=== PATIENT | female | born 1990 | race Hispanic/Latino ===

== ENCOUNTER 2018-03-09 09:10 | Emergency (ER) | payer OTHER ==
[2018-03-09 09:19] VITALS: BMI 29.9
[2018-03-09] MEDS ORDERED: Sodium Chloride 0.9% 1,000 ML IV SCH (10:15)
--- NOTE | 2018-03-09 10:28 | ED PDOC ---
HPI: Abdomen Time Seen by Provider: 03/09/18 10:04 Chief Complaint (Nursing): Abdominal Pain Chief Complaint (Provider): Abdominal Pain History Per: Patient History/Exam Limitations: no limitations Onset/Duration Of Symptoms: Hrs Outside of [place] travel?: No Current Symptoms Are (Timing): Still Present Location Of Pain/Discomfort: RLQ, LLQ Quality Of Discomfort: Cramping Associated Symptoms: Diarrhea Additional History Per: Patient Additional Complaint(s): 28 y/o female presents to the ED with less than one day onset of lower abdominal cramps with loose bowel movements consistent with history of IBS. Patient however, is concerned of the stool color changes and describes in the last three episodes consists of dark stools. Additionally, patient reports of feeling dizzy, nausea, and unchanged appetite. Patient denies vomiting. Patient denies fever/chills/sweats Patient denies chest pain/palpitations/shortness of breath Patient denies urinary changes/dysuria Patient denies new medications Patient denies fall/trauma/travel. Patient had questionable sick contact with significant other last week. Patient denies loss of consciousness. Patient is here for further evaluation and presents with no other complaint. 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 Patient has had GI/colonoscopy done four years ago at a [place] facility. Past Medical History Reviewed: Historical Data, Nursing Documentation, Vital Signs Vital Signs: Last Vital Signs Temp 98.2 F 03/09/18 09:18 Pulse 85 03/09/18 09:18 Resp BP 146/85 03/09/18 09:39 Pulse Ox 98 03/09/18 12:48 - Medical History PMH: No Chronic Diseases - Surgical History Surgical History: Tonsillectomy (7yrs ago) - Family History Family History: States: Unknown Family Hx - Social History Alcohol: None - Immunization History Hx Tetanus Toxoid Vaccination: No Hx Influenza Vaccination: No Hx Pneumococcal Vaccination: No - Home Medications Home Medications: Ambulatory Orders Medication Instructions Recorded Ondansetron ODT [Zofran ODT] 4 mg PO TID #10 odt 03/09/18 - Allergies Allergies/Adverse Reactions: Allergies Allergy/AdvReac Type Severity Reaction Status Date / Time No Known Allergies Allergy Verified 03/09/18 09:49 Review of Systems ROS Statement: Except As Marked, All Systems Reviewed And Found Negative Constitutional: Negative for: Fever, Chills, Sweats Cardiovascular: Negative for: Chest Pain, Palpitations Respiratory: Negative for: Shortness of Breath Gastrointestinal: Positive for: Nausea, Abdominal Pain (lower). Negative for: Vomiting, Diarrhea Genitourinary Female: Negative for: Dysuria, Frequency, Hematuria Skin: Negative for: Rash Neurological: Positive for: Dizziness. Negative for: Weakness, Confusion, Altered Mental Status Physical Exam - Reviewed Nursing Documentation Reviewed: Yes Vital Signs Reviewed: Yes (elevated BP) - Physical Exam Appears: Positive for: No Acute Distress, Uncomfortable (alert/awake, GCS = 15, oriented x 3, uncomfortable, NAD, resting in bed) Head Exam: Positive for: ATRAUMATIC, NORMAL INSPECTION, NORMOCEPHALIC Skin: Positive for: Normal Color (cap refill < 1sec, no ulcerations, no petechiae, no gross pallor), Warm, Dry Eye Exam: Positive for: EOMI, Normal appearance, PERRL ENT: Positive for: Normal ENT Inspection Neck: Positive for: Normal, Painless ROM, Supple. Negative for: Decreased ROM, Pain On Movement Of Neck Cardiovascular/Chest: Positive for: Regular Rate, Rhythm, Chest Non Tender. Negative for: Murmur Respiratory: Positive for: Normal Breath Sounds. Negative for: Respiratory Distress Gastrointestinal/Abdominal: Positive for: Normal Exam, Bowel Sounds, Soft, Tenderness (+ diffuse lower abd tenderness; no rebound/guarding/rigidity, no masses, no linn's sign, no mcburney's point tenderness). Negative for: Guarding, Rebound, Asicites Back: Positive for: Normal Inspection. Negative for: L CVA Tenderness, R CVA Tenderness, Vertebral Tenderness Rectal: Positive for: Normal Exam, Rectal Tone Is: (normal), Stool Is Heme: ( NEGATIVE), Hemorrhoids (very small external/NON-thrombosed hemorrhoid, NON- tender, NO gross bleeding, no gross discharge noted). Negative for: Black Stool , Blood Streaked Stool Extremity: Positive for: Normal ROM. 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 Negative for : Motor/Sensory Deficits - Laboratory Results Result Diagrams: 03/09/18 10:37 03/09/18 10:37 - ECG O2 Sat by Pulse Oximetry: 98 (RA) Pulse Ox Interpretation: Normal - Radiology X-Ray: Read By Radiologist - Progress ED Course And Treament: Time: 1014 Impression: lower abd cramping, dark stools/loose stools; worse symptoms then her usual IBS i have consider all the differential diagnosis regarding pt's chief medical complaints/clinical findings, including but are not limited to: r/o infectious, ? acute IBS exacerbation A/P: abd pain, dark stools -- CT Abd/Pelvis IV Contrast -- CMP -- Lipase -- CBC with differentials -- Sodium Chloride IV 150 mls/hr -- Zofran Inj -- IV Insertion -- POC Urine -- Urinalysis Time: 1240 CT ABD/PELVIS RESULTS FINDINGS: LOWER THORAX: Unremarkable. LIVER: Liver is enlarged measuring over 22 cm in CC dimension. Mild diffuse fatty hepatic infiltration. No obvious hepatic mass collection or calcification. Portal and splenic veins are opacified. GALLBLADDER AND BILE DUCTS: Physiologically distended. No evidence of intraluminal gallbladder calculi PANCREAS: Unremarkable. No gross lesion or ductal dilatation. SPLEEN: Unremarkable. ADRENALS: Unremarkable. No mass. KIDNEYS AND URETERS: Unremarkable. No hydronephrosis. No solid mass. VASCULATURE: Unremarkable. No aortic aneurysm. BOWEL: There is minimal wall thickening of the a short segment of the distal descending colon ; findings suggest mild colitis however clinical correlation recommended. APPENDIX: Normal appendix -best seen on coronal sequence image number [id number]. PERITONEUM: Unremarkable. No free fluid. No free air. LYMPH NODES: Unremarkable. No enlarged lymph nodes. BLADDER: Unremarkable. REPRODUCTIVE: Unremarkable. BONES: No acute fracture. OTHER FINDINGS: None. IMPRESSION: Hepatomegaly. Mild fatty hepatic infiltration Findings suggest mild localized colitis involving short segment distal descending colon. No evidence of acute appendicitis. Scribe Attestation: Documented by Darrel Garcia acting as a scribe for Dr. Rogerio Oshea MD. Provider Scribe Attestation: All medical record entries made by the Scribe were at my direction and personally dictated by me. I have reviewed the chart and agree that the record accurately reflects my personal performance of the history, physical exam, medical decision making, and the department course for this patient. I have also personally directed, reviewed, and agree with the discharge instructions and disposition. pt is doing well pt is comfortable 1:15pm - pt is doing well, pt is comfortable and not in any distress repeat abd exam: Soft/ND/NT, no rebound/guarding/rigidity, no masses, no linn' s sign, no mcburney's point tenderness pt is comfortable due to normal labs, and unremarkable CT abd/pelvis, will not recommend patient to be started on abx; i discussed with the patient at length with my recommendation, pt agrees and will continue to observe and will f/u as directed pt is made aware of her medical results pt is encouraged BRAT diet pt is encouraged fluid hydration pt will f/u as directed pt will be discharged home BP is much improved Re-evaluation Time: 13:15 Condition: Re-examined, Improved Medical Decision Making Medical Decision Making: Impression: lower abd cramping, dark stools/loose stools; worse symptoms then her usual IBS i have consider all the differential diagnosis regarding pt's chief medical complaints/clinical findings, including but are not limited to: r/o infectious, ? acute IBS exacerbation A/P: abd pain, dark stools - labs - iv - ct - ua - supportive care - observe/reevaluation 1:15pm - pt is doing well, pt is comfortable and not in any distress repeat abd exam: Soft/ND/NT, no rebound/guarding/rigidity, no masses, no linn' s sign, no mcburney's point tenderness pt is comfortable due to normal labs, and unremarkable CT abd/pelvis, will not recommend patient to be started on abx; i discussed with the patient at length with my recommendation, pt agrees and will continue to observe and will f/u as directed pt is made aware of her medical results pt is encouraged BRAT diet pt is encouraged fluid hydration pt will f/u as directed pt will be discharged home Disposition - Clinical Impression Clinical Impression: Abdominal cramps, Diarrhea - Patient ED Disposition Is Patient to be Admitted: No Counseled Patient/Family Regarding: Studies Performed, Diagnosis, Need For Followup, Rx Given - Disposition Referrals: Manuel Richardson MD [Staff Provider] - Annette Hua MD [Medical Doctor] - Disposition: Routine/Home Disposition Time: 13:13 Condition: STABLE Additional Instructions: Make sure to see your doctor in 1-2 days DRINK PLENTY OF FLUIDS BLAND DIET IS ENCOURAGED take your medications as prescribed RETURN TO ED IF worse pain, cant breath, persistent vomiting, high fever >101- 102 for hours, altered behavior, slurr speech, facial changes, focal weakness ( arm/leg or both), unable to urinate, heavy/persistent bleeding, passing out, chest pain, or other medical emergencies Prescriptions: Ondansetron ODT [Zofran ODT] 4 mg PO TID #10 odt Instructions: Diarrhea in Adolescents and Adults, Acute Abdomen (Belly Pain), Adult (DC), Irritable Bowel Syndrome, [place] Diet Forms: [employer] (Grenadian), [facility] ED School/Work Excuse Print Language: JAPANESE
[2018-03-09 10:41] LABS: BASO # 0.1 K/uL (0.0-0.2); BASO % 0.6 % (0.0-2.0); EOS # 0.1 K/uL (0.0-0.7); EOS % 1.4 % (0.0-4.0); HEMOGLOBIN 13.7 g/dL (12.0-16.0); LYMPH # 2.4 K/uL (1.0-4.3); LYMPH % 28.5 % (20.0-40.0); MEAN CORPUSCULAR HGB CONC 33.7 g/dL (33.0-37.0); MONO # 0.6 K/uL (0.0-0.8); MONO % 6.8 % (0.0-10.0); NEUT # 5.4 K/uL (1.8-7.0); NEUT % 62.7 % (50.0-75.0); RBC 4.42 Mil/uL (3.80-5.20); RED CELL DISTRIBUTION WIDTH 12.8 % (11.5-14.5); WHITE BLOOD COUNT 8.6 K/uL (4.8-10.8)
[2018-03-09 10:54] LABS: ALB/GLOB RATIO 1.2 (1.0-2.1); ALBUMIN 4.1 g/dL (3.5-5.0); ALT/SGPT 20 U/L (9-52); AST/SGOT 28 U/L (14-36); BLOOD UREA NITROGEN 11 mg/dl (7-17); CALCIUM 9.3 mg/dL (8.4-10.2); GFR AFRICAN-AMERICAN > 60; GFR NON-AFRICAN AMERICAN > 60; LIPASE 208 U/L (23-300)
[2018-03-09 10:57] LABS: SQUAMOUS EPITHIAL 2 /hpf (0-5); URINE BACTERIA OCC (<OCC); URINE BILIRUBIN NEGATIVE (NEGATIVE); URINE BLOOD SMALL (NEGATIVE); URINE CLARITY SLIGHTY-CLOUDY (Clear); URINE COLOR YELLOW (YELLOW); URINE GLUCOSE (UA) NEG (Normal); URINE LEUKOCYTE ESTERASE TRACE Leu/uL (Negative); URINE PROTEIN NEGATIVE (NEGATIVE); URINE UROBILINOGEN 0.2-1.0 mg/dL (0.2-1.0)
--- NOTE | 2018-03-09 11:03 | ED PDOC ---
HPI: General Adult Time Seen by Provider: 03/09/18 10:03 Chief Complaint (Nursing): Abdominal Pain History Per: Patient Past Medical History Vital Signs: Last Vital Signs Temp 98.2 F 03/09/18 09:18 Pulse 85 03/09/18 09:18 Resp BP 146/85 03/09/18 09:39 Pulse Ox 98 03/09/18 09:18 - Surgical History Surgical History: Tonsillectomy (7yrs ago) - Immunization History Hx Tetanus Toxoid Vaccination: No Hx Influenza Vaccination: No Hx Pneumococcal Vaccination: No - Allergies Allergies/Adverse Reactions: Allergies Allergy/AdvReac Type Severity Reaction Status Date / Time No Known Allergies Allergy Verified 03/09/18 09:49 - ECG O2 Sat by Pulse Oximetry: 98 Disposition - Disposition
[2018-03-09] MEDS ORDERED: Iohexol 300 100 ML IJ ONE (11:17)
[2018-03-09] MEDS ORDERED: Sodium Chloride 0.9% 50 ML IV ONE (11:17)
--- NOTE | 2018-03-09 12:42 | CT ---
Date of service: 03/09/2018 PROCEDURE: CT Abdomen and Pelvis with contrast HISTORY: lower abd pain, diarrhea, dark stool COMPARISON: None. TECHNIQUE: Contrast dose: Radiation dose: Total exam DLP = mGy-cm. This CT exam was performed using one or more of the following dose reduction techniques: Automated exposure control, adjustment of the mA and/or kV according to patient size, and/or use of iterative reconstruction technique. FINDINGS: LOWER THORAX: Unremarkable. LIVER: Liver is enlarged measuring over 22 cm in CC dimension. Mild diffuse fatty hepatic infiltration. No obvious hepatic mass collection or calcification. Portal and splenic veins are opacified. GALLBLADDER AND BILE DUCTS: Physiologically distended. No evidence of intraluminal gallbladder calculi PANCREAS: Unremarkable. No gross lesion or ductal dilatation. SPLEEN: Unremarkable. ADRENALS: Unremarkable. No mass. KIDNEYS AND URETERS: Unremarkable. No hydronephrosis. No solid mass. VASCULATURE: Unremarkable. No aortic aneurysm. BOWEL: There is minimal wall thickening of the a short segment of the distal descending colon ; findings suggest mild colitis however clinical correlation recommended. APPENDIX: Normal appendix -best seen on coronal sequence image number [id number]. PERITONEUM: Unremarkable. No free fluid. No free air. LYMPH NODES: Unremarkable. No enlarged lymph nodes. BLADDER: Unremarkable. REPRODUCTIVE: Unremarkable. BONES: No acute fracture. OTHER FINDINGS: None. IMPRESSION: Hepatomegaly. Mild fatty hepatic infiltration Findings suggest mild localized colitis involving short segment distal descending colon. No evidence of acute appendicitis.
[2018-03-09 13:28] VITALS: BP 138/76; PULSE 86; RESP 17; TEMP 98.1
[2018-03-09 13:29] VITALS: O2SAT 98
== END 2018-03-09 13:27 | disposition home or self-care (01) ==
LOC: H.ER 09:10
DX: R10.9 Unspecified abdominal pain (principal); R19.7 Diarrhea, unspecified
CPT/HCPCS: 74177; 80053; 81003; 81025; 83690; 85025; 96374; 99284; J2405; J7030; Q9967